=== PATIENT | male | born 1995 | race Caucasian/White ===

== ENCOUNTER 2018-07-03 12:02 | Emergency (ER) | payer MEDICAID, OTHER | END 2018-07-03 12:45 | disposition home or self-care (01) | LOC: FTE 12:02 | DX: B08.1 Molluscum contagiosum (principal) | CPT/HCPCS: 99282; Z7502 ==

== ENCOUNTER 2019-02-18 18:33 | Emergency (ER) | payer MEDICAID ==
[2019-02-18] MEDS: CEFTRIAXONE 1 GM INJ IM (21:55)
[2019-02-18] MEDS: HYDROCODONE/APAP (5/325) TAB PO (21:55)
[2019-02-18] MEDS: TRIMETHOPRIM/SULFAMETHOX (DS) TAB PO (21:55)
[2019-02-18] MEDS: LIDOCAINE 1% (MDV) 20 ML INJ SC (21:56)
== END 2019-02-19 00:16 | disposition home or self-care (01) ==
LOC: FTE 02-19 00:16
DX: L02.415 Cutaneous abscess of right lower limb (principal)
CPT/HCPCS: 10060; 96372; 99284-25

== ENCOUNTER 2019-02-21 10:30 | Emergency (ER) | payer MEDICAID | END 2019-02-21 11:57 | disposition home or self-care (01) | LOC: FTE 10:30 | DX: Z48.01 Encounter for change or removal of surgical wound dressing (principal) | CPT/HCPCS: 99281; Z7502 ==